=== PATIENT | male | born 1990 ===

== ENCOUNTER → 2021-03-04 11:03 | Outpatient (CLI) | payer SELFPAY ==
[2021-03-04 12:47] LABS: Urine N gonorrhoeae NOT DETECTED
[2021-03-04 12:51] LABS: Urine Chlamydia NOT DETECTED
== END ==
PROVIDERS: Visit Provider Physician Assistant
DX: Z11.3 Encounter for screening for infections with a predominantly sexual mode of transmission (principal); R36.9 Urethral discharge, unspecified
CPT/HCPCS: 87210; 87491; 87591